=== PATIENT | male | born 1955 | race Hispanic/Latino ===

== ENCOUNTER 2016-07-31 13:22 | Emergency (ER) | payer OTHER ==
[~2016-07-31] VITALS: Ht 154.9 cm; Wt 78.2 kg
[~2016-07-31 13:22] MED LIST: ASPI-628 PO; ATEN50TA PO; TAMS0.4C98 PO
[2016-07-31 13:24] VITALS: BP 177/78; PULSE 68; RESP 16; O2SAT 98
[2016-07-31] MEDS ORDERED: ATOR10TA66 PO (13:31)
[2016-07-31] MEDS ORDERED: TAMS0.4C29 PO (13:31)
[2016-07-31] MEDS ORDERED: METF500T4 PO (13:31)
[2016-07-31] MEDS ORDERED: FINA5TAB9 PO (13:31)
--- NOTE | 2016-07-31 13:44 | ED.REPORT ---
HPI-Back Pain 40 and Over Date of Service Jul 31, 2016 ED Provider: History of Present Illness: 61-year-old Maltese-speaking male here for back pain. Hurting for 2 days now. 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 He had no fall or known injury his back just started hurting while working. Pain shoots down his legs intermittently bilaterally. He also has some intermittent numbness and tingling that radiates down to his toes. The pain has worsened over the last few days. No loss of bowel or bladder or fever. He has history of an L&I injury injuring his left upper back and this is also bothering him a little bit today but the pain has not changed in that area. It hurts him to change positions, he had a hard time lying down onto the gurney. But he is comfortable once lying flat. Nursing Notes Stated Complaint: BACK PAIN Chief Complaint: Back Pain or Injury Nursing Notes Reviewed: Yes Allergies: Coded Allergies: No Known Allergies (Verified Allergy, Unknown, 07/31/16) Scheduled Aspirin (Aspir 81) 81 Mg Tablet.dr 81 MG PO DAILY Atenolol (Atenolol) 50 Mg Tablet 50 MG PO DAILY Atorvastatin Calcium (Atorvastatin Calcium) 10 Mg Tablet 10 MG PO DAILY Finasteride (Finasteride) 5 Mg Tablet 5 MG PO DAILY Metformin (Metformin) 500 Mg Tablet 500 MG PO BID Tamsulosin ER (Tamsulosin ER) 0.4 Mg Cap.er.24h 0.4 MG PO DAILY Scheduled PRN Acetaminophen (Acetaminophen) 325 Mg Tablet 975 MG PO Q8H PRN PRN For Pain Cyclobenzaprine (Cyclobenzaprine) 10 Mg Tablet 10 MG PO HS PRN PRN Spasm General Time Seen by MD: 13:43 Chief Complaint Back pain Sudden in Onset?: Yes Past Medical History Past Medical History Notes: lower back and upper back injuries/pain Past Medical History "Heart beats very hard" - takes medication Recent multiple broken ribs - discharged from hospital 1400 04/20 Reports: Hypertension Past Surgical History Denies Smoking History Former Smoker, Never Smoker Social History 19 year old child at home that can read [place]. Discharge instructions in [place] will be fine. Alcohol Use: Denies alcohol use Drug Use: Denies drug use Ambulatory Status Independent Review of Systems Basic Review of Systems Eyes: Vision NL, No discharge ENT: Hearing NL, No pain, No nasal congestion, No pharyngeal pain Hematologic: No bleeding, No bruising Skin: No bruising, No rash, No itch Psychiatric: Normal thought content Constitutional: Denies: Fever GI: Denies: Abdominal pain Musculoskeletal: Reports: Back pain, Extremity pain, Lumbar pain Neurologic: Reports: Problem walking, Denies: Abnormal movement, Bladder dysfunction, Bowel dysfunction Complete sys rev & neg: except as marked. Physical Exam Initial Vital Signs Vital Signs (First) Date Time Temp Pulse Resp B/P Pulse Ox O2 Delivery O2 Flow Rate FiO2 07/31/16 13:24 36.1 68 16 177/78 98 Room Air Initial VS: Reviewed, Vital signs normal Neck: Supple, Non-tender, Full range of motion Extremities: Vascular intact, Neuro intact, No swelling, No tenderness Skin: Warm, Dry, No cyanosis Psychiatric: Mood/affect normal, Behavior normal, Normal thought content General/Constitutional: Awake, Alert, No acute distress, Well appearing, Well developed, Well hydrated Respiratory / Chest: Breath sounds NL, Breath sounds = bilat, No respiratory distress, No rales, No rhonchi, No wheezing Cardiovascular: Heart rate NL, Regular rhythm, Heart sounds NL, No murmurs, Peripheral circulation NL Back: Atraumatic, Inspection NL, No midline vertebral tend Flank / Spine / Paraspinal: Positive: Lumbar paraspinal tend... (Low), Lumbar spine tender... (Mid), Sacral paraspinal tend... (High) Muscle Spasm / ROM: Positive: Lumbar area spasm Straight Leg Raise: Positive: Strt leg raise + L 20 deg, Strt leg raise + R 20 deg pt has difficulties moving in gurney, cannot sit up once lying. will medicate and reeval Neurologic: Oriented X3, Speech NL, No motor deficits, No sensory deficits Lower Extremity / Pelvis / MS: Atraumatic, Inspection NL, No swelling, Non- tender, No erythema, No deformity, Neurologic intact, Vascular intact Re-Eval/Medical Decision Med Decision/Clinical Course 1530-recheck on patient patient is sitting in a chair looking more comfortable. States his pain is down. He can ambulate in the room without a limp. Patient ready for discharge with medications and follow-up Discharge & Departure Shift Change Sign-Out Response to Therapy: Improved Impression: Primary Impression: Low back pain Chronicity: acute Back pain laterality: bilateral Sciatica presence: with sciatica Sciatica laterality: bilateral sciatica Qualified Code: M54.42 - Lumbago with sciatica, left side Additional Impression: Bilateral sciatica Disposition: Home Discharge Condition All VS Reviewed: Yes Condition: Stable Patient Instructions: Low Back Strain (ED), Sciatica (ED) Additional Instructions: Take 975mg Tylenol 3 times a day. Use a muscle relaxer, Flexeril, at night as needed for back pain and spasm. Follow-up with your doctor this week for further care. Return immediately for fever, severe pain, loss of bowel or bladder or worsen in any way. Referrals: Cecil Green MD (PCP) EDSupervising Provider for APC: Domenic Kumar MD, Linnea K ARNP Jul 31, 2016 13:44
[2016-07-31] MEDS ORDERED: ACET325T51 PO (15:37)
[2016-07-31] MEDS ORDERED: CYCL10TA9 PO (15:38)
[2016-07-31 15:48] VITALS: BP 177/78; PULSE 68; RESP 16; O2SAT 98
== END 2016-07-31 15:48 | disposition home or self-care (01) ==
LOC: SED 13:22
DX: M54.42 Lumbago with sciatica, left side (principal); I10 Essential (primary) hypertension; Z87.891 Personal history of nicotine dependence; Z79.82 Long term (current) use of aspirin; Z79.84 Long term (current) use of oral hypoglycemic drugs
CPT/HCPCS: 96372; 99283; J1885